=== PATIENT | male | born 1955 | race Caucasian/White ===

== ENCOUNTER 2021-07-16 13:12 | Outpatient (CLI) | payer BC | END 2021-07-16 13:13 | disposition home or self-care (01) | LOC: CSHMRI 13:12 | PROVIDERS: ATTEND Urology | DX: R97.20 Elevated prostate specific antigen [PSA] (principal); Z80.42 Family history of malignant neoplasm of prostate; Z98.890 Other specified postprocedural states | CPT/HCPCS: 72197; 82565 ==

== ENCOUNTER 2022-01-21 10:04 | Outpatient (CLI) | payer MEDICARE | END 2022-01-21 10:05 | disposition home or self-care (01) | LOC: CSHLAB 10:04 | PROVIDERS: ATTEND Internal Medicine Gastroenterology | DX: Z20.822 Contact with and (suspected) exposure to COVID-19 (principal); K21.9 Gastro-esophageal reflux disease without esophagitis; Z12.11 Encounter for screening for malignant neoplasm of colon | CPT/HCPCS: U0003; U0005 ==

== ENCOUNTER → 2022-01-26 | Day surgery (SDC) | payer MEDICARE ==
[2022-01-22 11:17] VITALS: BMI 31.0
== END | disposition home or self-care (01) ==
LOC: CSHSDC 09:06
PROVIDERS: ATTEND Internal Medicine Gastroenterology
DX: Z12.11 Encounter for screening for malignant neoplasm of colon (principal); K21.9 Gastro-esophageal reflux disease without esophagitis; I10 Essential (primary) hypertension; M19.90 Unspecified osteoarthritis, unspecified site; Z53.9 Procedure and treatment not carried out, unspecified reason; Z79.899 Other long term (current) drug therapy